=== PATIENT | male | born 1985 | race Caucasian/White ===

== ENCOUNTER 2017-02-02 21:00 | Inpatient (IN) | payer OTHER ==
--- NOTE | ~2017-02-02 | PN ---
Unit #: [id number] #: [id number] Patient: SADIA MOMIN [id number] [facility] [address] [place] [address] [id number] MR#: [id number] NAME: SADIA MOMIN ROOM: [facility] Age: 31 Sex: M Admission Date: 02/03/2017 : 1985 Attending Physician: Tracee Dubon M.D. Admitting Physician: Tracee Dubon M.D. Primary Care Physician: Argelia CAMERON PROGRESS NOTES DATE February 04, 2017 DISCUSSION Mr. Momin is a 31-year-old white male, who was seen today and chart was reviewed and the case was discussed with the staff. He has been anxious, withdrawn, and seclusive to himself and did appear to be in some distress and discomfort, as he goes through detox. Meanwhile, he has been taking the medications and tolerating them fairly well with no reported side effects. MENTAL STATUS EXAMINATION Young white male, who was casually dressed with fair personal hygiene and appears to be in no acute distress or discomfort. He was awake and alert on interaction with intact orientation. His mood is anxious and depressed with a congruent affect. He denies any suicidal or homicidal ideations, and also denies any auditory or visual hallucinations. His insight and judgment remain slightly impaired. TREATMENT PLAN 1. We will continue him on his current medications and treatment protocol, and will monitor his response to the medications, and make further adjustments as needed. 2. We will continue to followup. Dictated by... Chrystal Deleon/michael TD: 02/05/2017 11:35 JOB #: [id number] Unit #: [id number] #: [id number] Patient: SADIA MOMIN PEAEULOGIO PROGRESS NOTES Page 1 of 1 X Tracee Dubon MD PROGRESS NOTE
--- NOTE | ~2017-02-02 | PN ---
Unit #: [id number] #: [id number] Patient: SADIA MOMIN [id number] [facility] [address] [place] [address] [id number] MR#: [id number] NAME: SADIA MOMIN ROOM: [facility] Age: 31 Sex: M Admission Date: 02/03/2017 : 1985 Attending Physician: Tracee Dubon M.D. Admitting Physician: Tracee Dubon M.D. Primary Care Physician: Argelia CAMERON PROGRESS NOTES DATE February 05, 2017 DISCUSSION Mr. Momin is a 31-year-old white male, who was seen today and chart was reviewed and the case was discussed with the staff. He has been anxious, withdrawn, and rather seclusive to himself. He has been cooperative with the treatment recommendations and he has been taking the medications and tolerating them fairly well. MENTAL STATUS EXAMINATION Young white male, who was casually dressed with fair personal hygiene and appears to be in no acute distress or discomfort. He was awake and alert on interaction with intact orientation. His mood is anxious with a congruent affect. His speech is slow and goal-directed. He denies any suicidal or homicidal ideations, and also denies any auditory or visual hallucinations. His insight and judgment remain slightly impaired. TREATMENT PLAN 1. We will continue him on his current medications and treatment protocol, and will monitor his response to the medications, and make further adjustments as needed. 2. We will continue to followup. Dictated by... Tracee Dubon M.D. TITO/michael TD: 02/05/2017 11:59 JOB #: [id number] Unit #: [id number] #: [id number] Patient: SADIA MOMIN PROGRESS NOTES Page 1 of 1 X Tracee Dubon MD PROGRESS NOTE
--- NOTE | ~2017-02-02 | HP ---
Unit #: [id number] #: [id number] Patient: SADIA MOMIN [id number] [place] [address] [id number] I MR#: [id number] NAME: SADIA MOMIN ROOM: [facility] Age: 31 Sex: M Admission Date: 02/03/2017 : 1985 Attending Physician: Tracee Dubon M.D. Admitting Physician: Tracee Dubon M.D. Primary Care Physician: Argelia Cesar HISTORY AND PHYSICAL HISTORY OF PRESENT ILLNESS The patient is a 31-year-old male who states he was admitted due to heroin abuse and here for detox. PAST MEDICAL HISTORY None. PAST SURGICAL HISTORY None. ALLERGIES None. SOCIAL HISTORY Positive for smoking and heroin. FAMILY HISTORY Noncontributory. REVIEW OF SYSTEMS CONSTITUTIONAL: No fever or chills. HEENT: Denies any sore throat, ear pain or runny nose. CARDIOVASCULAR: Denies chest pain, irregular heart rhythm or palpitations. CHEST: Denies shortness of breath or cough. No hemoptysis. GASTROINTESTINAL: Denies nausea, vomiting, diarrhea or chronic constipation. ENDOCRINE: Denies history of increased thirst or urination. No recent significant weight loss or gain. GENITOURINARY: Denies dysuria, frequency, or hematuria. SKIN: Denies any rashes. HEMATOLOGIC: Denies history of increased bleeding or bruising. MUSCULOSKELETAL: Denies any hot, swollen joints. No generalized muscle pain. NEUROLOGIC: Denies problems with vision or speech. No frequent, severe headaches. No numbness, tingling or weakness in any extremities. Denies loss of bladder or bowel control. CURRENT MEDICATIONS None. PHYSICAL EXAMINATION GENERAL: Alert, oriented, in no acute distress. VITAL SIGNS: Temperature 97.6, blood pressure 102/66, heart rate 121, Unit #: [id number] #: [id number] Patient: SADIA MOMIN respirations 16. HEIGHT: 5 feet 9 inches. WEIGHT: 160 pounds. SKIN: Track cisse bilateral AC. Bruise to the left knee. HEENT: Normocephalic. TMs not viewed. Oral and nasal passages clear. Conjunctivae clear. PERRLA. EOMs intact. NECK: Supple without lymphadenopathy or thyromegaly. HEART: Regular rate and rhythm without murmur. LUNGS: Clear. ABDOMEN: Soft, nontender, without masses or hepatosplenomegaly. : Not done. EXTREMITIES: No evidence of cyanosis, clubbing or edema. Moves all without focal deficit. NEUROLOGICAL: Grossly within normal limits. Cranial Nerves: II: Visual sorensen are intact. III, IV AND : Extraocular movements are intact. Pupils are equal, round and reactive to light. V: Facial sensation is grossly normal. VII: Facial movements and expression are normal. VIII: Auditory acuity grossly intact. IX, X: Uvula is midline. Phonation is normal. XI: Patient shrugs shoulders and turns head normally. XII: Tongue protrudes in the midline. Sensory and Motor Function: Sensory and motor sensation is grossly normal. Motor: moves all extremities well. Coordination: Gait is normal. Deep Tendon Reflexes: Intact. IMPRESSION Psychiatric admission. RECOMMENDATIONS PSYCHIATRIC: Per psychiatrist. MEDICAL: No contraindications to participate in facility's activities. MEDICAL PROGNOSIS Good. Dictated by... Simi Davis/huey TD: 02/03/2017 20:52 JOB #: [id number] HISTORY AND PHYSICAL Page 1 of 1 X Lelia Montoya APR X HISTORY AND PHYSICAL
--- NOTE | ~2017-02-02 | DS ---
Unit #: [id number] #: [id number] Patient: [facility] [id number] [facility] [place] [address] [id number] I MR#: [id number] NAME: SADIA MOMIN ROOM: [facility] Age: 31 Sex: M Admission Date: 02/03/2017 : 1985 Discharge Date: 02/06/2017 Attending Physician: Tracee Dubon M.D. Primary Care Physician: Argelia Cesar DISCHARGE SUMMARY IDENTIFYING DATA Mr. Momin is a 31-year-old single white male, who is a resident of [place], [place], and was self-referred to the hospital on a voluntary basis. DISCHARGE DIAGNOSES Psychiatric: Opioid dependence, moderate and acute withdrawal; opioid-induced mood disorder. Medical: None. Stressors: Moderate psychosocial stressors. HISTORY OF PRESENT ILLNESS Please see initial psychiatric evaluation for details. PAST PSYCHIATRIC HISTORY Please see initial psychiatric evaluation for details. PAST MEDICAL HISTORY Please see initial psychiatric evaluation for details. HOSPITAL COURSE The patient was admitted to the adult chemical dependency unit at [facility] [place] and was oriented to the hospital environment. Routine p.r.n. medications were initiated, and he was started back on his home medications and medications were adjusted and he was closely monitored. He was taking the medications regularly and was tolerating them fairly well and was able to show a decent and therapeutic response and was willing to continue treatment on an outpatient basis. DISCHARGE MEDICATIONS None. DISCHARGE CONDITION Stable. PROGNOSIS Fair. Dictated by... Chrystal Deleon/sheng Unit #: [id number] #: [id number] Patient: SADIA MOMIN TD: 02/06/2017 07:14 JOB #: [id number] DISCHARGE SUMMARY Page 1 of 1 X Tracee Dubon MD X DISCHARGE SUMMARY
--- NOTE | ~2017-02-02 | PA ---
Unit #: [id number] #: [id number] Patient: [facility]OMIN [id number] [facility] [address] [place] [address] [id number] I MR#: [id number] NAME: SADIA MOMIN ROOM: [facility] Age: 31 Sex: M Admission Date: 02/03/2017 : 1985 Date of Assessment: Attending Physician: Tracee Dubon M.D. Admitting Physician: Tracee Dubon M.D. Primary Care Physician: Argelia Cesar PSYCHIATRIC ASSESSMENT DATE OF SERVICE 02/03/2017. IDENTIFYING DATA Mr. Child is a 31-year-old single white male, who is a resident of [place], [place] and was self-referred to the hospital on voluntary basis. CHIEF COMPLAINT "Use of a gram of IV heroin a day." HISTORY OF PRESENT ILLNESS Mr. Child is a 31-year-old white male with history of opioid dependence, was self-referred to the hospital reporting that he has been using 1 g of IV heroin on daily basis and has been using this amount for a year and his last use was yesterday evening and reports increasing depression, anxiety, irritability, restlessness, significant consequences because of his addiction, feelings of hopelessness and helplessness, though he denies any suicidal ideations, intent, or plan. SUBSTANCE ABUSE HISTORY The patient reports opioids, particularly IV heroin to be his drug of choice and reports that he has been using 1 g IV on a daily basis and denies any other drug abuse. PAST PSYCHIATRIC HISTORY The patient has had history of [facility], and at [facility], and review of the medical records indicate that currently he is not active in any treatment program, is not seeing a psychiatrist, and not taking any psychotropic medications. PAST MEDICAL HISTORY The patient's medical history is insignificant. ALLERGIES No known medication allergies. CURRENT MEDICATIONS None. PERSONAL AND SOCIAL HISTORY A 31-year-old white male, who reports that he is single, unemployed, and Unit #: [id number] #: [id number] Patient: SADIA MOMIN lives by himself and has poor social support system. MENTAL STATUS EXAMINATION Young white male, who was casually dressed with fair personal hygiene, appears to be in no acute distress or discomfort. He was awake and alert on interaction with intact orientation to time, place, and person. His mood was anxious and depressed with congruent affect. Speech was slow and restricted in content. He reports having suicidal ideations, but denies any homicidal ideations, and also denies any auditory or visual hallucinations. His insight and judgment remain slightly impaired. DIAGNOSTIC IMPRESSION Psychiatric: Opioid dependence, moderate, in acute withdrawals; opioid-induced mood disorder. Medical: None. Stressors: Moderate psychosocial stressors. TREATMENT PLAN 1. The patient has presented with a history of substance abuse and mood disorder, and has been decompensating and will need inpatient hospitalization for safety and stabilization. We will start him back on his home medications and detox protocol will be initiated as well. 2. Supportive therapy was provided to the patient. 3. Safe, structured, and nourishing environment will be provided. ESTIMATED LENGTH OF STAY 4 to 5 days. ABILITY TO HELP SELF Limited. WILLINGNESS TO HELP SELF The patient appears to be willing to help self. STRENGTHS 1. Communicative. 2. Cooperative. PROBLEMS 1. Chronic dysphoric symptoms. 2. Chronic chemical dependency. 3. Poor social support system. DISCHARGE CRITERIA This will be contingent upon the patient's ability to go through detox without having any significant withdrawal symptoms as well as his ability to stay safe to himself and others, particularly after discharge from the hospital. Dictated by... Chrystal Deleon/sheng TD: 02/04/2017 02:26 JOB #: [id number] Unit #: [id number] #: [id number] Patient: SADIA MOMIN PSYCHIATRIC ASSESSMENT Page 1 of 1 X Tracee Dubon MD X PSYCHIATRIC ASSESSMENT
[~2017-02-02 21:00] MED LIST: CIPRO PO; LORTAB 5/500 TA1 TA1 PO; PEN-VEE K PO; POLYTRIM EYE DR10 ML OP; RONDEC-DM SYRU120 ML PO; VICODIN 5/500 T1 TAB PO
[2017-02-03 13:53] LABS: BASOPHIL% 0.4 % (0-2.5); EOSINOPHIL# 0.1 X10e3 (0-0.7); EOSINOPHIL% 1.6 % (0.0-7.0); HEMATOCRIT 45.8 % (38.0-50.0); HEMOGLOBIN 14.9 gm/dL (13.0-16.0); LYMPHOCYTE# 2.8 X10e3 (1.0-3.5); LYMPHOCYTE% 36.5 % (17.0-45.0); MEAN CELL VOLUME 86.7 FL (83-96); MEAN CORPUSCULAR HEMOGLOBIN 28.2 PG (28-34); MEAN CORPUSCULAR HGB CONC 32.5 g/dL (30-36); MEAN PLATELET VOLUME 7.9 FL (6.5-11.5); MONOCYTE# 0.4 X10e3 (0-1.0); MONOCYTE% 5.7 % (3.0-12.0); NEUTROPHIL# 4.2 X10e3 (1.5-7.1); NEUTROPHIL% 55.8 % (40-75); PLATELET COUNT 268 X10e3 (140-420); RED BLOOD COUNT 5.29 X10e (3.90-5.60); RED CELL DISTRIBUTION WIDTH 13.2 % (11.0-15.5); WHITE BLOOD COUNT 7.5 X10e3 (4.0-10.5)
[2017-02-03 14:01] LABS: DIFF IND NO
[2017-02-03 14:10] LABS: ALBUMIN SERUM 4.2 g/dL (3.5-5.0); BILIRUBIN,TOTAL 0.5 mg/dL (0.2-2.0); BUN/CREATININE RATIO 12.85; CALCIUM SERUM 9.2 mg/dL (8.4-10.2); CREATININE SERUM 0.7 mg/dL (0.6-1.4); GLOM FILT RATE Estimated 126.7 mL/min (>60); POTASSIUM 3.9 mmol/L (3.5-5.1); PROTEIN TOTAL SERUM 7.3 g/dL (6.0-8.3)
[2017-02-05 12:44] LABS: URINE APPEARANCE CLEAR; URINE BILIRUBIN NEG (NEG); URINE BLOOD NEG (NEG); URINE COLOR YELLOW; URINE GLUCOSE NEG (NEG); URINE KETONE NEG (NEG); URINE LEUKOCYTE ESTERASE NEG (NEG); URINE NITRATE NEG (NEG); URINE PH 7.5 (5-8); URINE PROTEIN NEG (NEG); URINE SPECIFIC GRAVITY 1.005 (1.003-1.035); URINE UROBILINOGEN 0.2 MG/DL (NEG)
[2017-02-05 13:53] LABS: AMPHETAMINE NEG (NEG); BARBITURATES NEG (NEG); BENZODIAZEPINES NEG (NEG); COCAINE NEG (NEG); MARIJUANA NEG (NEG); OPIATES POS (NEG); TRICYCLIC ANTIDEPRESSANTS NEG (NEG); U METHADONE NEG (NEG)
[2017-02-09 12:30] LABS: HA AB IGM (HEPPAN) Nonreactive (()); HB CORE AB IGM (HEPPAN) Nonreactive (Nonreactive); HB S AG (HEPPAN) Nonreactive (Nonreactive); HEP C AB (HEPPAN) Reactive (Nonreactive)
== END 2017-02-06 07:34 | DRG 897 ==
LOC: P2S 02-03 01:24
PROVIDERS: Psychiatry & Neurology Psychiatry
PROC: HZ2ZZZZ Detoxification Services for Substance Abuse Treatment (ICD-10-PCS; principal; 2017-02-03)
DX: F11.23 Opioid dependence with withdrawal (principal); F11.24 Opioid dependence with opioid-induced mood disorder; F17.210 Nicotine dependence, cigarettes, uncomplicated
CPT/HCPCS: 80053; 80074; 80307; 81003; 85025; 86592; 87522; 87806